=== PATIENT | female | born 1985 | race Caucasian/White ===

== ENCOUNTER → 2024-03-27 | Outpatient (CLI) | payer BC ==
--- NOTE | 2024-03-27 10:55 | XR ---
EXAMINATION TYPE: XR ankle complete LT DATE OF EXAM: 03/27/2024 COMPARISON: None HISTORY: Pain, swelling TECHNIQUE: 3 view left ankle FINDINGS: Ankle mortise is intact. No acute fracture or dislocation. Minimal soft tissue swelling ove r the inferior lateral views may be present. Follow up exams can be performed 7-10 days from acute trauma for continued pain. IMPRESSION: 1. No acute osseous abnormality left ankle [facility], , 03/27/2024 10:53 AM
== END | disposition home or self-care (01) ==
LOC: RADXRMAIN 10:33
PROVIDERS: ATTEND Nurse Practitioner Family
DX: S93.402A Sprain of unspecified ligament of left ankle, initial encounter (principal)